=== PATIENT | male | born 1990 | race Asian ===

== ENCOUNTER → 2024-10-13 | Outpatient (REF) | payer SELFPAY | LOC: M LAB REF 18:57 | PROVIDERS: ATTEND Registered Nurse | DX: N34.1 Nonspecific urethritis (principal) ==

== ENCOUNTER → 2024-10-14 | Outpatient (CLI) | payer SELFPAY ==
[2024-10-14 13:15] LABS: HEPATITIS B SURFACE ANTIGEN NEGATIVE (NEGATIVE)
[2024-10-14 13:27] LABS: HIV 1&2 SCREEN NEGATIVE (NEGATIVE)
[2024-10-14 13:35] LABS: HEPATITIS B CORE ANTIBODY IGM NEGATIVE (NEGATIVE); HEPATITIS C VIRUS ABY INDEX < 0.02 INDEX (<0.8)
[2024-10-14 14:08] LABS: GC DNA AMPLIFICATION NEGATIVE (NEGATIVE)
== END ==
LOC: M PLALAB 08:41
PROVIDERS: ATTEND Registered Nurse
DX: N34.1 Nonspecific urethritis (principal)